=== PATIENT | female | born 1975 | race Caucasian/White ===

== ENCOUNTER 2017-05-10 06:44 | Outpatient (CLI) | payer OTHER | END 2017-05-10 06:45 | disposition home or self-care (01) | LOC: BICMRI 06:44 | PROVIDERS: ATTEND Family Medicine | DX: M54.12 Radiculopathy, cervical region (principal) | CPT/HCPCS: 72141 ==

== ENCOUNTER 2017-07-04 10:29 | Day surgery (SDC) | payer OTHER ==
--- NOTE | 2017-06-26 11:11 | HP ---
HISTORY OF PRESENT ILLNESS: Ms. Jauregui is a 42-year-old female that presents with neck pain and nu mbness, tingling, and pain in the left greater than right C6 dermatome. She says this pain has been getting worse since 04/07/2017. She was injured at work. She has some left bicep weakness on exam. The pain is made worse, better with some Lyrica and analgesics. The pain is made somewhat worse wit h lifting objects and turning her head to the left. She has positive Spurling's. She has been dropp ing things more frequently because of weakness. IMAGING: MRI of the cervical spine at [facility]. REVIEW OF SYSTEMS: Ten-point review of systems complete is otherwise negative unless stated in the a tasia HPI. PAST MEDICAL HISTORY: ADHD, anxiety, depression, ear infections, chronic sinusitis, high cholesterol , depression, anemia, headaches, and ADHD. PAST SURGICAL HISTORY: Gallbladder, wisdom teeth, sinus surgery. HOSPITALIZATIONS: Childbirth. FAMILY HISTORY: Father is alive with depression, alcohol abuse. Mother is alive with hypothyroidism , depression, alcohol abuse, seasonal allergies, diabetes, hypertension. Siblings alive with ADHD, o ne sister. SOCIAL HISTORY: The patient is a nonsmoker. 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 She is , has t wo children. She lives with her spouse and consumes beer once a month. MEDICATIONS: 1. Taking Tramadol HCL 50 mg tablet 1 tablet orally q.6 hours as needed for pain. 2. Taking ibuprofen. 3. Taking Soma. 4. Taking Robaxin. 5. Taking etodolac. 6. Taking Zanaflex. 7. Taking diclofenac potassium. 8. Fenoprofen calcium. 9. Ativan. 10. Melatonin. 11. CPAP. 12. Vyvanse. 13. Wellbutrin. 14. Levaquin. 15. Corticosporin. 16. Cymbalta. 17. Bactroban. ALLERGIES: STADOL causes hallucinations, PEANUTS causes rash. PHYSICAL EXAMINATION: HEENT: Normocephalic, atraumatic. Hearing intact. Moist mucous membranes. Trachea is midline. EYES: Pupils equal and reactive to light. Extraocular muscles are intact. Sclerae is white, nonict sweta. PSYCHIATRIC: Normal mood and affect. CARDIOVASCULAR/CARDIOPULMONARY: No cyanosis or clubbing noted. Intact pedal pulses bilaterally. UPPER EXTREMITY/MUSCULOSKELETAL: 4/5 strength in the left biceps, full range of motion. Sensory def icit in left C6 dermatome. RESPIRATORY: Even respirations, good effort in all lung sánchez, sound clear with no wheezing or crac kles. NEUROLOGIC: Cranial nerves II-XII are grossly intact. Speech is fluent. She answers my questions a ppropriately. She has normal gait and station. ASSESSMENT: 1. Radiculopathy, cervical region. 2. Neck pain, left side. PLAN: Dr. Rodriguez offered a C5-C6, ACDF to help relieve the nerve compression of the cervical spin e. We offered physical therapy, injections, pain management as nonsurgical options. The patient wou ld like to proceed with surgery. After discussing the risks and she fully understands the risk of th e surgery.
[2017-07-03 11:32] VITALS: BMI 43.2
[2017-07-04 11:32] LABS: #Eosinphils 0.2 thou/uL (0.0-0.7); #Monocytes 0.6 thou/uL (0.11-0.59); #Neutrophils 4.1 thou/uL (1.40-6.50); %Basophils 0.6 % (0.0-1.0); %Eosinophils 2.5 % (0.0-10.0); %Monocytes 8.9 % (0.0-10.0); %Neutrophils 58.9 % (42.0-75.0); Hemoglobin 10.6 g/dL (12.0-16.0); Mean Corpuscular HGB CONC 33.4 g/dL (32.0-36.0); Mean Corpuscular Volume 92.6 fl (81.0-99.0); Mean Platelet Volume 5.9 fL (7.4-10.4); Platelet Count 367 thou/uL (130-400); RBC Distribution Width 13.1 % (11.5-14.5); Red Blood Cell (RBC) Count 3.41 mill/uL (4.20-5.40); White Blood Cell (WBC) Count 6.9 thou/uL (4.8-10.8)
[2017-07-04 11:38] LABS: PTT 30.9 SEC (22.9-36.1)
[2017-07-04] MEDS ORDERED: CEFAZOLIN/Water 2 GM/20 ML SYRINGE ONE (11:42)
[2017-07-04] MEDS ORDERED: Sodium Chloride 0.9% 10 ML ONE (11:49)
[2017-07-04] MEDS ORDERED: Thrombin 5000 UNITS/5 ML VIAL ONE (11:49)
[2017-07-04 11:57] LABS: BHCG - Serum Negative (NEGATIVE); Pregs Control Background? CLEAR/WHITE (CLR/WHITE); Pregs Control Bar Appear? YES (CONTROL BAR)
[2017-07-04] MEDS ORDERED: Fentanyl 100 MCG/2 ML VIAL ONE ×2 (12:03→15:08)
[2017-07-04] MEDS ORDERED: HYDROmorphone 0.5 MG/0.5 ML SYRINGE ONE (13:53)
--- NOTE | 2017-07-04 14:47 | OP ---
DATE OF PROCEDURE: 07/04/2017 SURGEON: Kathy Rodriguez M.D. SLIP DUMPER: Lucho Choi PA-C. PREOPERATIVE INDICATION: Treat pain, prevent neurological deterioration. PREOPERATIVE DIAGNOSES: A C5-C6 intervertebral disk herniation in the left C6 nerve root foramen wit h C6 radiculopathy. POSTOPERATIVE DIAGNOSES: A C5-C6 intervertebral disk herniation in the left C6 nerve root foramen wi th C6 radiculopathy. OPERATIVE PROCEDURE: Anterior cervical diskectomy, intravertebral arthrodesis, placement of interver tebral biomechanical device, anterior cervical plating C5-C6, local morselized autograft, morselized Allograft, and operating microscope. PREOPERATIVE MEDICATION: Ancef 2 grams IV. DRAIN NUMBER: Zero. DRAIN TYPE: None. OPERATIVE DICTATION: The patient was brought to the operating room. General endotracheal anesthesia was induced. The patient was positioned supine on the operating table with her head supported by ge l-filled donut shaped head rest. A lateral fluoro radiograph was used to plan our incision. The rig ht side of the neck was sterilely prepped and draped. We opened with a 10 blade knife and controlled bleeding with bipolar cautery. We dissected sharply to the platysma and cut this muscle in line wit h our incision. We continued our dissection medial to the sternocleidomastoid and lateral to the tra abner and esophagus. We arrived at the prevertebral space. We placed a marker at the C4-C5 interspac e and took a lateral fluoro radiograph. We then counted down from C4-C5 and C5-C6. We elevated the longus colli muscles off the anterior surface of C5 and C6, and placed a self-retaining retractor leon eath them. We placed distraction pins at C5 and C6 and distracted across that interspace. We incise d the interspace with a 15 blade knife and we removed the disk contents with curettes and rongeurs. The operative microscope was brought into the field. Under microscopic magnification using microsurgical techniques, we removed the remnants of the interv ertebral disk at the back and the intervertebral space. We removed the posterior longitudinal ligame nt in a piecemeal fashion with Kerrison rongeurs. We performed wide anterior foraminotomies by remov ing the uncovertebral joint posterolaterally. In the left nerve root foramen, there was loose fragme nt of disk that was removed as a single piece. There were other fragments of disk that were protrudi ng but not herniated. All of these were removed and we could visualize the left side at C6 nerve dirk t quite easily at the completion of our decompression. We then prepared the endplates for grafting w ith curets and we measured the height of the interspace to 7 mm. A 7 mm PEEK intravertebral graft wa s brought into the field. The graft was loaded with demineralized bone matrix and morselized autogra ft. The autograft was obtained from posterior osteophyte removal. These osteophytes were cleaned of soft tissue attachments and morselized into our demineralized bone matrix as our fusion substrate. The PEEK graft was advanced into the interspaces under radiographic guidance to the appropriate depth then removed the operating microscope and distraction pins. A 14 mm anterior cervical plate was bro ught into the field. We drilled ferry pilot holes through the plate into the vertebral bodies at C5 and C6 and affixed the plate using 14 mm screws. We engaged the locking mechanism over each of the 4 screw s. AP and lateral fluoro radiographs confirmed adequate positioning of our instrumentation. We irri gated copiously with bacitracin irrigation. We closed a wound in anatomic layers and we applied a st erile dressing. This was a clean case and no contamination.
[2017-07-04] MEDS ORDERED: Dexamethasone 20 MG/5 ML VIAL ONE (16:45)
[2017-07-04] MEDS ORDERED: Metoclopramide HCl 10 MG/2 ML VIAL ONE (16:45)
[2017-07-04] MEDS ORDERED: PHENYLEPHRINE-NS 100 MCG/ML 10 ML SYRINGE ONE (16:45)
[2017-07-04] MEDS ORDERED: Propofol 200 MG/20 ML VIAL ONE (16:45)
[2017-07-04] MEDS ORDERED: Ondansetron HCl/PF 4 MG/2 ML Vial ONE (16:45)
[2017-07-04] MEDS ORDERED: Glycopyrrolate 0.2 MG/ML 5 ML SYRINGE ONE (16:45)
[2017-07-04] MEDS ORDERED: Lidocaine 1% PF 5 ML VIAL ONE ×2 (16:45)
== END 2017-07-04 17:55 | disposition home or self-care (01) ==
LOC: SDC 10:29
PROVIDERS: ATTEND Neurological Surgery
PROC: 0RG10A0 Fusion of Cervical Vertebral Joint with Interbody Fusion Device, Anterior Approach, Anterior Column, Open Approach (ICD-10-PCS; principal; 2017-07-04)
PROC: 0RT30ZZ Resection of Cervical Vertebral Disc, Open Approach (ICD-10-PCS; principal; 2017-07-04)
DX: M50.122 Cervical disc disorder at C5-C6 level with radiculopathy (principal); F90.9 Attention-deficit hyperactivity disorder, unspecified type; F32.9 Major depressive disorder, single episode, unspecified; F41.9 Anxiety disorder, unspecified; J32.9 Chronic sinusitis, unspecified; E78.00 Pure hypercholesterolemia, unspecified; D64.9 Anemia, unspecified; G47.33 Obstructive sleep apnea (adult) (pediatric); M26.603 Bilateral temporomandibular joint disorder, unspecified; G43.909 Migraine, unspecified, not intractable, without status migrainosus; F17.210 Nicotine dependence, cigarettes, uncomplicated; Z99.89 Dependence on other enabling machines and devices; Z79.1 Long term (current) use of non-steroidal anti-inflammatories (NSAID); Z79.2 Long term (current) use of antibiotics; Z79.899 Other long term (current) drug therapy; Z88.5 Allergy status to narcotic agent; Z91.010 Allergy to peanuts; Z90.49 Acquired absence of other specified parts of digestive tract; Z98.818 Other dental procedure status
CPT/HCPCS: 36415; 76001; 84703; 85025; 85610; 85730; 96374; A4216; C1713; C1776; J0131; J1100; J1170; J2001; J2405; J2704; J2765; J3010; J3490

== ENCOUNTER 2017-08-29 09:21 | Outpatient (CLI) | payer OTHER ==
--- NOTE | 2017-08-29 11:01 | RAD ---
CERVICAL SPINE FOUR VIEWS: HISTORY: Status post surgery in June 2017. Follow-up examination. COMPARISON: None. FINDINGS: AP, lateral, base of skull, and open-mouth views of the cervical spine demonstrate an anterior fusion plate with a transvertebral body screw at C5 and C6. No perihardware lucency. There is a disk pros thesis at the C5-C6 level. There is mild degenerative change at C6-C7. The cervicothoracic junction is excluded. The lateral masses of C1 and C2 articular appropriately. The odontoid process is inta ct. On the AP projection, no malalignment. IMPRESSION: Uncomplicated cervical fusion at C5-C6. POS: [facility]
== END 2017-08-29 09:22 | disposition home or self-care (01) ==
LOC: TBSIIMAG 09:21
PROVIDERS: ATTEND Neurological Surgery
DX: M54.12 Radiculopathy, cervical region (principal); Z98.1 Arthrodesis status
CPT/HCPCS: 72040

== ENCOUNTER 2017-12-02 12:24 | Outpatient (CLI) | payer OTHER | END 2017-12-02 12:25 | disposition home or self-care (01) | LOC: BICMAMMO 12:24 | PROVIDERS: ATTEND Obstetrics & Gynecology | DX: Z12.31 Encounter for screening mammogram for malignant neoplasm of breast (principal) | CPT/HCPCS: 77063; 77067 ==

== ENCOUNTER 2020-11-21 19:00 | Outpatient (CLI) | payer OTHER | END 2020-11-21 19:01 | disposition home or self-care (01) | LOC: SLEEPLAB 19:00 | PROVIDERS: ATTEND Specialist | DX: G47.33 Obstructive sleep apnea (adult) (pediatric) (principal); G47.10 Hypersomnia, unspecified; R06.83 Snoring; F90.9 Attention-deficit hyperactivity disorder, unspecified type; F33.2 Major depressive disorder, recurrent severe without psychotic features; F41.9 Anxiety disorder, unspecified; R51.9 Headache, unspecified; G47.00 Insomnia, unspecified | CPT/HCPCS: 95810 ==

== ENCOUNTER 2022-09-13 15:22 | Outpatient (CLI) | payer BC ==
[2022-09-13 16:25] LABS: #Eosinphils 0.1 10x3/uL (0.0-0.5); #Monocytes 0.7 10x3/uL (0.0-1.1); #Neutrophils 4.3 10x3/uL (1.5-8.4); %Basophils 0.6 % (0.0-2.0); %Eosinophils 1.6 % (0.0-6.0); %Lymphocytes 25.6 % (18.0-47.0); %Monocytes 10.2 % (0.0-10.0); %Neutrophils 61.6 % (40.0-75.0); Hemoglobin 12.3 g/dL (12.0-15.5); Mean Corpuscular HGB CONC 33.4 g/dL (32.0-36.0); Mean Corpuscular Volume 95.8 fl (81.6-98.3); Mean Platelet Volume 8.7 fl (7.4-10.4); Platelet Count 300 10x3/uL (150-450); RBC Distribution Width 12.3 % (11.5-14.5); Red Blood Cell (RBC) Count 3.84 10x6/uL (3.90-5.03)
== END 2022-09-13 15:23 | disposition home or self-care (01) ==
LOC: LABBT 15:22
PROVIDERS: ATTEND Orthopaedic Surgery Hand Surgery
DX: Z01.812 Encounter for preprocedural laboratory examination (principal); G56.01 Carpal tunnel syndrome, right upper limb
CPT/HCPCS: 85025

== ENCOUNTER 2022-09-17 12:43 | Day surgery (SDC) | payer BC ==
[2022-09-13 16:00] VITALS: BMI 41.2
[2022-09-17] MEDS ORDERED: Betamet Acet/Betamet Na Ph 30 MG/5 ML VIAL ONE (14:55)
[2022-09-17] MEDS ORDERED: Bacitracin Zinc Ointment 30 gm TUBE ONE (14:56)
[2022-09-17] MEDS ORDERED: Bupivacaine HCl 0.5%/Epinephrine 1:200,000/PF 30 ml Vial ONE (14:56)
[2022-09-17] MEDS ORDERED: Midazolam HCl 2 mg/2 ml Vial ONE (15:52)
[2022-09-17] MEDS ORDERED: fentaNYL PF 100 MCG/2 ML SYRINGE ONE (15:57)
[2022-09-17] MEDS ORDERED: Magnesium 5 GM/10 ML VIAL ONE (15:57)
[2022-09-17] MEDS ORDERED: Sodium Chloride 0.9% 100 ML ONE (16:00)
[2022-09-17] MEDS ORDERED: CEFAZOLIN 2 GM VIAL ONE (16:00)
[2022-09-17] MEDS ORDERED: Ketorolac Tromethamine 30 MG/ML VIAL ONE ×2 (16:10→17:59)
[2022-09-17] MEDS ORDERED: Dexamethasone 20 MG/5 ML VIAL ONE (16:10)
[2022-09-17] MEDS ORDERED: PROPOFOL 200 MG/20 ML VIAL ONE (16:10)
[2022-09-17] MEDS ORDERED: Lidocaine 1% PF 5 ML VIAL ONE (16:10)
[2022-09-17] MEDS ORDERED: Ondansetron PF 4 MG/2 ML Vial ONE (16:10)
[2022-09-17] MEDS ORDERED: Bupivacaine PF 0.5% 30 ML VIAL ONE ×2 (16:34→17:37)
== END 2022-09-17 18:45 | disposition home or self-care (01) ==
LOC: SDC 12:43
PROVIDERS: ATTEND Orthopaedic Surgery Hand Surgery
PROC: 01N50ZZ Release Median Nerve, Open Approach (ICD-10-PCS; principal; 2022-09-17)
DX: G56.03 Carpal tunnel syndrome, bilateral upper limbs (principal); M65.4 Radial styloid tenosynovitis [de Quervain]; M77.11 Lateral epicondylitis, right elbow; E78.00 Pure hypercholesterolemia, unspecified; Z87.891 Personal history of nicotine dependence; Z79.899 Other long term (current) drug therapy; Z88.5 Allergy status to narcotic agent; Z91.010 Allergy to peanuts; Z98.1 Arthrodesis status
CPT/HCPCS: J0702; J1100; J1885; J2250; J2405; J2704; J3475; J3490; S0020